=== PATIENT | male | born 1995 | race Caucasian/White ===

== ENCOUNTER 2017-02-10 11:29 | Emergency (ER) | payer OTHER, BC ==
[~2017-02-10] VITALS: Ht 180.3 cm; Wt 101.4 kg
[2017-02-10 11:35] VITALS: TEMP 36.5; Ht 180.3 cm; Wt 101.4 kg
[2017-02-10] MEDS ORDERED: SODIUM CHLORIDE 0.9% 1000ML 1,000 ML IV STA (11:41)
[2017-02-10] MEDS ORDERED: ONDANSETRON INJ 2 MG/ML 2 ML VIAL IV STA (11:45)
[2017-02-10] MEDS ORDERED: HYDROmorphone INJ 1 MG/ML SYR IV STA (11:45)
[2017-02-10 12:00] VITALS: O2SAT 98
--- NOTE | 2017-02-10 12:05 | DIAGNOSTIC IMAGING REPORT ---
CT HEAD WITHOUT CONTRAST (CT) CLINICAL HISTORY: Head trauma COMPARISON STUDY: No previous studies for comparison. TECHNIQUE: Axial CT of the brain is performed from the vertex to the skull base. IV contrast was not administered for this examination. CT DOSE: 2229.31 mGy.cm FINDINGS: No intra or extra-axial mass lesions are visualized. There is no CT evidence of acute cortical infarction. There is no evidence of midline shift. There is no acute hemorrhage. No calvarial fractures are visualized. There is no evidence of pathologic ventricular dilatation. There is no evidence of acute sinusitis IMPRESSION: Normal noncontrast head CT. Electronically signed by: Sunny Dsouza M.D. 02/10/2017 12:03 PM Dictated Date/Time: 02/10/2017 12:03 PM
[2017-02-10 12:07] LABS: BASO % 0.2 %; BASO ABS # 0.02 K/uL (0-0.2); COMPLETE YES; HEMATOCRIT 46.5 % (42-52); IG% 0.2 %; LYMPH % 40.9 %; LYMPH ABS # 3.28 K/uL (1.2-3.4); MEAN CELL VOLUME 91.4 fL (80-100); MEAN CORPUSCULAR HEMOGLOBIN 31.4 pg (25-34); MEAN CORPUSCULAR HGB CONC 34.4 g/dl (32-36); MEAN PLATELET VOLUME 10.3 fL (7.4-10.4); MONO % 7.7 %; PLATELET COUNT 248 K/uL (130-400); RED BLOOD COUNT 5.09 M/uL (4.7-6.1); WHITE BLOOD COUNT 8.02 K/uL (4.8-10.8)
--- NOTE | 2017-02-10 12:08 | DIAGNOSTIC IMAGING REPORT ---
CT ABD/PELVIS IV CONTRAST ONLY CLINICAL HISTORY: Diffuse abdominal pain. Trauma. COMPARISON STUDY: None. TECHNIQUE: Following the IV administration of 119 mL of Optiray-320, CT scan of the abdomen and pelvis was performed from the lung bases to the proximal femurs. Images are reviewed in the axial, sagittal, and coronal planes. IV contrast was administered without complication. CT DOSE: FINDINGS: Lower chest: The heart is normal in size and configuration, without pericardial effusion. The lung bases and pleural spaces are clear. Liver: The contrast-enhanced liver is normal in size, contour, and attenuation. There is no intrahepatic biliary ductal dilatation. The hepatic veins and portal veins are patent. Gallbladder: Unremarkable. Spleen: Normal in size and attenuation. Pancreas: Unremarkable. Adrenal glands: Unremarkable. Kidneys: There is symmetric renal cortical enhancement. The kidneys are normal in size without hydronephrosis. Bowel: There are no transition zones indicate bowel obstruction. The appendix appears normal as visualized. There is no interloop fluid. There are no extraluminal gas collections. Peritoneum: There is no intraperitoneal free air or abdominal ascites. Vasculature: The abdominal aorta is normal in course and caliber. Adenopathy: None. Pelvic viscera: The bladder, and pelvic viscera are unremarkable. Skeletal structures: There is a left-sided L5 spondylolysis. IMPRESSION: No evidence of acute intra-abdominal or pelvic injury. Electronically signed by: Sunny Dsouza M.D. 02/10/2017 12:07 PM Dictated Date/Time: 02/10/2017 12:04 PM
--- NOTE | 2017-02-10 12:08 | DIAGNOSTIC IMAGING REPORT ---
CT SCAN OF THE CERVICAL SPINE CLINICAL HISTORY: Neck injury. COMPARISON STUDY: No priors. TECHNIQUE: CT scan of the cervical spine is performed from the skull base to the upper thoracic spine. Images are reviewed in the axial, sagittal, and coronal planes. IV contrast was not administered for this examination. FINDINGS: Skeletal structures: The skeletal structures are well mineralized. There is no evidence of fracture or subluxation involving the cervical spine. Vertebral body height and alignment are maintained. There is straightening of the cervical lordosis. The odontoid process and lateral masses are intact. The atlantoaxial articulation is preserved. The spinous processes appear intact. Intervertebral discs: The disc spaces are well maintained. Central canal: Widely patent. Soft tissues: The prevertebral and paraspinous soft tissues are within normal limits. Calvarium: The visualized calvarium at the skull base appears intact. Brain parenchyma: Partially visualized brain parenchyma the skull base is within normal limits. Sinuses and mastoids: The visualized paranasal sinuses are clear. The mastoid air cells are well pneumatized. Lung apices: Clear as visualized. IMPRESSION: There is no evidence of fracture or subluxation involving the cervical spine. Electronically signed by: Rivas Silva M.D. 02/10/2017 12:07 PM Dictated Date/Time: 02/10/2017 12:04 PM
--- NOTE | 2017-02-10 12:13 | DIAGNOSTIC IMAGING REPORT ---
CT SCAN OF THE NECK WITH IV CONTRAST CLINICAL HISTORY: Neck injury. COMPARISON STUDY: No priors. TECHNIQUE: Following the IV administration of 119 cc of Optiray 320, CT scan of the soft tissues of the neck was performed from the skull base to the upper chest. Images are reviewed in the axial, sagittal, and coronal planes. IV contrast was administered without complication. FINDINGS: Soft tissues: There is mild soft tissue induration seen within the anterior subcutaneous soft tissues in the infrahyoid region, possibly representing contusion. There is no hematoma identified. No evidence of active extravasation is seen. Pharynx: The nasopharynx, oropharynx, and laryngeal pharynx are normal in appearance. The pharyngeal airway is widely patent. There is no evidence of mass lesion. The vocal cords are symmetric. The parapharyngeal fat is well maintained. The prevertebral/retropharyngeal soft tissues are within normal limits. The epiglottis is normal. Lymphadenopathy: Shotty cervical lymph nodes are noted. These are not pathologically enlarged by size criteria Thyroid: Normal in size and attenuation. Salivary glands: The parotid and submandibular glands are within normal limits. Brain parenchyma: The visualized brain parenchyma at the skull base is normal in appearance. Vascular structures: The internal carotid arteries and jugular veins are widely patent bilaterally. Skeletal structures: Imaged portions of the calvarium at the skull base are within normal limits. The cervical spine appears intact. Sinuses and mastoids: A retention cyst is seen in the right maxillary antrum. Trace fluid is noted in the left maxillary antrum. The remaining paranasal sinuses are clear. The mastoid air cells are well pneumatized. Orbits: The bony orbits are intact. Orbital contents are normal in appearance. Lung apices: Visualized apical lung parenchyma is clear. IMPRESSION: 1. There is mild induration within the ventral subcutaneous soft tissues in the infrahyoid region, possibly representing contusion. No hematoma or active extravasation is seen. 2. The pharyngeal soft tissues are within normal limits. Electronically signed by: Rivas Silva M.D. 02/10/2017 12:12 PM Dictated Date/Time: 02/10/2017 12:07 PM
[2017-02-10] MEDS ORDERED: LORAZEPAM 2 MG/ML 1 ML VIAL IV STA (12:22)
[2017-02-10 12:25] LABS: BUN/CREATININE RATIO 13.3 (10-20); CREATININE 1.1 mg/dl (0.60-1.40); POTASSIUM 3.4 mmol/L (3.5-5.1)
[2017-02-10 12:33] VITALS: BP 124/64; PULSE 70; O2SAT 96
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
== END 2017-02-10 12:35 | disposition short-term general hospital (02) ==
LOC: C.EDB 11:31
DX: S11.81XA Laceration without foreign body of other specified part of neck, initial encounter (principal); W20.8XXA Other cause of strike by thrown, projected or falling object, initial encounter; Y99.0 Civilian activity done for income or pay; Y92.821 Forest as the place of occurrence of the external cause; Y93.89 Activity, other specified